=== PATIENT | female | born 1975 | race Caucasian/White ===

== ENCOUNTER 2016-08-15 11:16 | Inpatient (IN) | payer OTHER ==
[~2016-08-15] VITALS: Ht 154.9 cm; Wt 73.9 kg
[2016-08-15 11:47] LABS: microscopic required? NO
[2016-08-15 11:55] LABS: BASOPHIL % 0.7 % (0-2); PLATELET COUNT 323 x10^3mcL (130-400)
[2016-08-15 12:06] LABS: CALCIUM 8.7 mg/dL (8.5-10.1); CARBON DIOXIDE 26.9 mmol/L (21-32); CHLORIDE SERUM 101 mmol/L (98-107); CREATININE SERUM 0.6 mg/dL (0.6-1.0); GFR1 > 60 mL/min; GLUCOSE SERUM 109 mg/dL (74-106); POTASSIUM SERUM 3.6 mmol/L (3.5-5.1); SODIUM SERUM 140 mmol/L (136-145)
[2016-08-15 12:09] LABS: UA SPECIFIC GRAVITY <=1.005 (1.005-1.035); urine erythrocyte NEGATIVE (NEGATIVE)
[2016-08-15 12:18] LABS: AMPHETAMINE QUAL UR NONE DETECTED (NEG <=1000)
[2016-08-15 12:18] LABS: ALBUMIN 3.9 g/dL (3.4-5.0); ALKALINE PHOSPHATASE 72 U/L (46-116); ALT/SGPT 18 U/L (14-59); AMYLASE 65 U/L (25-115); AST/SGOT 19 U/L (15-37); BILIRUBIN TOTAL 0.2 mg/dL (0.20-1.00); HDL CHOLESTEROL 58 mg/dL (40-60); LIPASE 126 IU/L (73-393); TOTAL PROTEIN, SERUM 7.8 g/dL (6.4-8.2)
[2016-08-15 12:20] LABS: CHOLESTEROL 225 mg/dL (<200)
[2016-08-15] MEDS ORDERED: SING10 PO (12:51)
[2016-08-15] MEDS ORDERED: ALLEGRA ALLERG180 M1 PO (12:52)
[2016-08-15 13:47] LABS: CHOLESTEROL/HDL RATIO 3.9
[2016-08-15 13:50] LABS: T3 TOTAL 1.23 ng/mL
[2016-08-15 14:00] LABS: FREE T4 1.25 ng/dL (0.76-1.46); FREE THYROXINE INDEX 3.7 ug/dL (1.4-4.5); T4(THYROXINE) 11.2 ug/dL (4.7-13.3)
[2016-08-15 14:48] VITALS: BP 111/70
[2016-08-15 18:01] VITALS: BP 135/95
[2016-08-15 18:06] VITALS: BP 108/71
[2016-08-15 19:55] VITALS: BP 114/77
[2016-08-16 04:15] LABS: PLATELET COUNT 275 x10^3mcL (130-400); RED CELL DISTRIBUTION WIDTH 14.1 % (11.5-14.5)
[2016-08-16 04:32] LABS: CALCIUM 8.2 mg/dL (8.5-10.1); CARBON DIOXIDE 27.1 mmol/L (21-32); CHLORIDE SERUM 107 mmol/L (98-107); CREATININE SERUM 0.5 mg/dL (0.6-1.0); GFR1 > 60 mL/min; GLUCOSE SERUM 92 mg/dL (74-106); POTASSIUM SERUM 3.8 mmol/L (3.5-5.1); SODIUM SERUM 140 mmol/L (136-145)
[2016-08-16 04:53] LABS: ATYPICAL LYMPH 1 %; BAND NEUTROPHIL 2 % (0-10); METAMYELOCTE 2 % (0-2); MONOCYTE 6 % (0-7); MYELOCYTE 1 % (0-2); SEGMENTED NEUTROPHILS 54 % (37-75); rbc morphology (normal/abnorm) NORMAL (NORMAL)
[2016-08-16 04:54] LABS: PLATELET MORPHOLOGY FEW LARGE PLATELETS
[2016-08-16 05:35] VITALS: BP 114/69
[2016-08-16 09:33] VITALS: BP 115/75
== END 2016-08-16 11:20 | disposition left against medical advice (07) | DRG 392 ==
LOC: ED 11:16 → DU 12:44
PROVIDERS: Emergency Medicine; ADMIT Family Medicine
DX: K21.9 Gastro-esophageal reflux disease without esophagitis (principal); E78.5 Hyperlipidemia, unspecified; I10 Essential (primary) hypertension; J30.2 Other seasonal allergic rhinitis; T78.1XXA Other adverse food reactions, not elsewhere classified, initial encounter; I69.398 Other sequelae of cerebral infarction; H53.8 Other visual disturbances; J45.909 Unspecified asthma, uncomplicated; R00.0 Tachycardia, unspecified; E66.9 Obesity, unspecified; Z68.30 Body mass index [BMI] 30.0-30.9, adult
CPT/HCPCS: 80307; 83880; 84439; 85378; J1885; J2270; J7030; Q0092